=== PATIENT | female | born 1950 | race Caucasian/White ===

== ENCOUNTER 2017-12-11 18:20 | Observation (INO) | payer MEDICARE ==
--- NOTE | 2017-12-11 19:06 | RAD ---
PA CHEST 12/11/17 HISTORY: Shortness of breath. COMPARISON: 11/17/05. Lungs appear clear. No infiltrate identified. Heart and mediastinum unremarkable. IMPRESSION: No acute abnormality identified. POS: [facility]
[2017-12-11 19:36] LABS: #Basophils 0.1 thou/uL (0.0-0.2); #Eosinphils 0.5 thou/uL (0.0-0.7); #Lymphocytes 1.8 thou/uL (1.20-3.40); #Monocytes 0.7 thou/uL (0.11-0.59); #Neutrophils 6.7 thou/uL (1.40-6.50); %Basophils 0.6 % (0.0-1.0); %Eosinophils 5.5 % (0.0-10.0); %Lymphocytes 18.1 % (21.0-51.0); %Monocytes 6.9 % (0.0-10.0); %Neutrophils 68.9 % (42.0-75.0); Hemoglobin 12.8 g/dL (12.0-16.0); Mean Corpuscular Volume 96.9 fl (81.0-99.0); Mean Platelet Volume 7.2 fL (7.4-10.4); Platelet Count 279 thou/uL (130-400); RBC Distribution Width 11.4 % (11.5-14.5); Red Blood Cell (RBC) Count 3.99 mill/uL (4.20-5.40); White Blood Cell (WBC) Count 9.8 thou/uL (4.8-10.8)
[2017-12-11 19:42] LABS: Prothrombin Time 13.2 SEC (12.0-14.7)
[2017-12-11 19:43] LABS: PTT 32.7 SEC (22.9-36.1)
--- NOTE | 2017-12-11 19:53 | RAD ---
RIGHT HIP: 12/11/17 Two views. HISTORY: Fall with injury to right hip. No evidence of fracture. Femoral head contours maintained. IMPRESSION: No acute fracture identified. POS: [facility]
--- NOTE | 2017-12-11 19:57 | RAD ---
RIGHT KNEE: 12/11/17 Four views. HISTORY: Fall with injury to right knee. There are moderate degenerative changes of the right knee. There is loss of medial joint space. Promi nent spurring from all joint compartments. No significant joint effusion. No acute fracture identifie d. IMPRESSION: Moderate degenerative changes of right knee. POS: [facility]
[2017-12-11 19:58] LABS: ALT (SGPT) 25 U/L (8-55); AST (SGOT) 25 U/L (5-34); Alkaline Phosphatase 78 U/L (40-150); Anion Gap 14 mmol/L (10-20); BUN (Urea Nitrogen) 20 mg/dL (9.8-20.1); Bilirubin, Total 0.3 mg/dL (0.2-1.2); CK (CPK) 161 U/L (29-168); Calc. Creatinine Clearance 0 mL/min (70-130); Calcium 9.5 mg/dL (7.8-10.44); Carbon Dioxide 27 mmol/L (23-31); Chloride 100 mmol/L (98-107); Estimated GFR-MDRD 47; Globulin 3.4 g/dL (2.4-3.5); Glucose 122 mg/dL (80-115); Lipase 29 U/L (8-78); Potassium 3.6 mmol/L (3.5-5.1); Protein, Total 7.4 g/dL (6.0-8.3); Sodium 137 mmol/L (136-145)
[2017-12-11 20:02] LABS: CKMB 3.2 ng/mL (0-6.6); Troponin I 0.018 ng/mL (< 0.028)
--- NOTE | 2017-12-11 20:04 | CT ---
CT HEAD WITHOUT CONTRAST: 12/11/17 Multiple axial tomograms obtained through the head without IV enhancement. HISTORY: Falls with injury to head. Ventricles have normal size and position. No evidence of intracranial hemorrhage. No mass or infarct seen. Sinuses and mastoids are well aerated. IMPRESSION: Unremarkable head CT. POS: [facility]
[2017-12-11] MEDS ORDERED: Triamcinolone 0.1% Cream 15 GM TUBE TOP PRN (22:08)
[2017-12-11] MEDS ORDERED: Acetaminophen 325 MG TAB PO PRN (22:39)
[2017-12-11] MEDS ORDERED: Ondansetron ODT 4 MG TAB PO PRN (22:39)
[2017-12-11] MEDS ORDERED: Atorvastatin Calcium 40 MG TAB PO SCH (23:00)
[2017-12-11] MEDS: Sodium Chloride 0.9% 1,000 ML IV SCH (23:00)
[2017-12-11 23:14] LABS: Troponin I 0.023 ng/mL (< 0.028)
--- NOTE | 2017-12-12 01:43 | HP-2 ---
CODE STATUS: FULL. PRIMARY CARE PHYSICIAN: [facility]. ATTENDING: Jean-Pierre Gregory M.D. RESIDENT: Xavi Madison M.D. CHIEF COMPLAINT: Recurrent falls. HISTORY OF PRESENT ILLNESS: This is a 67-year-old female who presents after 4 unwitnessed falls melanie ier today from standing. The patient is not a very good historian during this interview. The patien t does state that she did not lose consciousness. She did not lose continence at that time either. She said that she had 2 falls back to back. The first falls occurred while she was getting out of a car, she was standing still and she fell down to her right side. She then attempted to get up and sh e fell back down. Her sister was able to help her get up, she then drove home and the same set of ev ents occurred at home as well. At that time, then I was decided that she needed to be brought to the ER for evaluation. She denies any weakness, any numbness, any dizziness or any recent illness. She does state that she had not drank much water today and had been dizzy. She denies any vision change s, headache, nausea, vomiting, or diarrhea. She states that she did not have any vision changes or l oss of consciousness during the fall. She has no other complaints at this time. In the ER, she was not given anything. PAST MEDICAL HISTORY: Significant for hypertension and arthritis. PAST SURGICAL HISTORY: Appendectomy, cholecystectomy, and hysterectomy. ALLERGIES: FENTANYL. MEDICATIONS: 1. She takes hydrochlorothiazide 25 mg orally daily. 2. Lisinopril 40 mg daily. 3. Amitriptyline 100 mg at bedtime. FAMILY HISTORY: Noncontributory. SOCIAL HISTORY: No tobacco, alcohol or drug use. REVIEW OF SYSTEMS: A 12-point review of systems was otherwise negative other than listed above as in the HPI. PHYSICAL EXAMINATION: VITAL SIGNS: Blood pressure was 100/69, pulse was 86, respiratory rate of 29, temperature max 98.6, pulse oximetry 100% on room air, and current weight is 94 kilos. GENERAL: Alert and oriented x4. Appropriately interactive. EYES: PERRLA. Conjunctivae within normal limits. ENT: Tympanic membranes are pearly davis without bulging or erythema. Nasal mucosa and oropharynx wi thin normal limits. NECK: Supple without lymphadenopathy, without thyromegaly. CARDIOVASCULAR: Regular rate and rhythm. No murmurs, no gallops. Radial and pedal pulses equal tomeka aterally. RESPIRATORY: Normal effort, no retractions. Lungs are clear to auscultation bilaterally. SKIN: Warm and dry. ABDOMEN: Soft, nontender to palpation. Bowel sounds are present x4. No masses or distention, but s he is an obese woman. EXTREMITIES: No clubbing, cyanosis or edema. MUSCULOSKELETAL: Structure, tone, muscle strength and range of motion within normal limits. NEUROLOGIC: No focal neurologic deficits. Sensation within normal limits. Cranial nerves II-XII gr ossly intact. GCS was 15. A complete neuro exam was unremarkable on this patient. PSYCHIATRIC: Ap propriate. LABORATORY DATA: White blood cell count 9.8, platelet count 279, hemoglobin 12.8, hematocrit 38.7, a nd 68.9% neutrophils. CK was 161, CK-MB was 3.2. Troponin I was 0.018. Sodium 137, potassium 3.6, chloride 100, bicarbonate 27, BUN 20, creatinine 1.14, glucose was 122, calcium 9.5, total protein 7. 4, albumin 4.0, AST 25, ALT 25, alkaline phosphatase 78, total bilirubin 0.3. PT was 13.2, INR was 1 .0, PTT 32.7. Lipase was 29. BNP was 15.9. The patient had a knee x-ray that showed moderate degen erative changes of the right knee. Also had a hip x-ray that showed no acute fracture identified. A lso had a chest x-ray that showed no acute abnormality identified and then also a brain CT that showe d unremarkable head CT. ASSESSMENT AND PLAN: This is a 67-year-old female with: 1. Recurrent falls. We will rule out a transient ischemic attack versus syncope versus a nerve entr apment from her lumbar radiculopathy. We scheduled that for an MRI in the morning and also get a lip id panel and TSH to risk stratify her for her transient ischemic attack. We put her on continuous ca rdiac monitoring. Her ABCD score was 3 to 5 to be a risk factors. We will continue her neuro checks . We are going to hold her blood pressure medications for now as she is more than well controlled. We will also put on fall precautions. Orthostatic vital signs will be pending and we will start her on aspirin and a statin drug tonight. 2. Hypertension. We will hold her blood pressure medications tonight as she is not hypertensive at this time. 3. Lumbar radiculopathy. We will recommend outpatient follow up for this. 4. Scalp dermatitis. Outpatient followup for steroid use. There was some discussion of this could possibly be due to a Parkinson's type presentation as she has had some autonomic dysfunction and scal p dermatitis that would be an abnormal presentation of this disease, but some can be considered as we are working in this patient. 5. She also has an acute kidney injury. We will give her IV fluids and monitor her BMP. DISPOSITION AND LENGTH OF HOSPITAL STAY: Will be stroke in one. Symptomatic medication will be provided. History and physical exam as well as management have been discussed with Dr. Gregory.
[2017-12-12] MEDS ORDERED: hydrOXYzine 25 MG TAB PO PRN (02:17)
[2017-12-12] MEDS ORDERED: diphenhydrAMINE 25 MG CAP PO PRN (03:08)
[2017-12-12 04:09] LABS: Anion Gap 14 mmol/L (10-20); BUN (Urea Nitrogen) 21 mg/dL (9.8-20.1); Calc. Creatinine Clearance 75 mL/min (70-130); Calcium 9.5 mg/dL (7.8-10.44); Carbon Dioxide 27 mmol/L (23-31); Cardiac Risk 4.4 (Less than 4.5); Chloride 103 mmol/L (98-107); Cholesterol 166 mg/dl (< 200 Desired); Estimated GFR-MDRD 50; Glucose 106 mg/dL (80-115); HDL Cholesterol 38 mg/dL (>60 Neg Risk); LDL Cholesterol, Calculated 105 mg/dL; Potassium 3.6 mmol/L (3.5-5.1); Sodium 140 mmol/L (136-145); Triglycerides 113 mg/dL (Less than 150)
[2017-12-12 06:47] VITALS: BMI 37.4
[2017-12-12] MEDS: Sodium Chloride 0.9% 1,000 ML IV SCH ×2 (07:47→20:38)
[2017-12-12] MEDS ORDERED: Lorazepam 2 MG/ML VIAL SLOW IVP PRN (08:16)
--- NOTE | 2017-12-12 08:19 | PDOC.FM ---
- Subjective Subjective: Patient c/o headache and scalp irritation this morning. She is otherwise normal with stable vital signs. She reports no prior episodes of syncope before yesterday. - Objective MAR Reviewed: Yes Vital Signs & Weight: Vital Signs (12 hours) Temp Pulse Resp BP Pulse Ox 12/12/17 05:18 97.9 F 83 16 94/52 L 92 L 12/11/17 23:00 97.9 F 92 16 12/11/17 22:39 97.9 F 92 16 130/60 96 Weight Weight 95.799 kg I&O: 12/11/17 12/12/17 12/13/17 06:59 06:59 06:59 Intake Total 875 Balance 875 Result Diagrams: 12/11/17 19:26 12/12/17 01:46 <José Miguel Loving - Last Filed: 12/12/17 08:18> - Objective Vital Signs & Weight: Vital Signs (12 hours) Temp Pulse Resp BP BP BP BP 12/12/17 12:00 97.9 F 75 16 93/65 12/12/17 09:00 102/55 L 85/46 L 111/55 L 12/12/17 08:00 97.8 F 80 16 110/63 12/12/17 05:18 97.9 F 83 16 94/52 L Pulse Ox 12/12/17 12:00 93 L 12/12/17 09:00 12/12/17 08:00 93 L 12/12/17 05:18 92 L Weight Weight 95.799 kg I&O: 12/11/17 12/12/17 12/13/17 06:59 06:59 06:59 Intake Total 875 240 Balance 875 240 Result Diagrams: 12/11/17 19:26 12/12/17 01:46 <German Duran - Last Filed: 12/12/17 12:22> Phys Exam - Physical Examination Constitutional: NAD HEENT: moist MMs Respiratory: no wheezing, no rales Cardiovascular: RRR, no significant murmur Gastrointestinal: soft, non-tender Neurological: moves all 4 limbs Psychiatric: normal affect, A&O x 3 <José Miguel Loving - Last Filed: 12/12/17 08:18> Dx/Plan (1) Syncope Code(s): R55 - SYNCOPE AND COLLAPSE Status: Suspected QualifierTitle: Encounter type: initial encounter Plan: Unknown etiology at this time, will r/o TIA with MRI today. Patient endorses decreased PO intake yesterday. Denies loss of consiousness, head trauma, or prodrome before falls. CT head done on admission negative. (2) Hypertension Code(s): I10 - ESSENTIAL (PRIMARY) HYPERTENSION Status: Chronic Plan: Not currently on medication (3) Seborrheic dermatitis of scalp Code(s): L21.9 - SEBORRHEIC DERMATITIS, UNSPECIFIED Status: Chronic Plan: Being treated in the OP setting (4) Lumbar radiculopathy, chronic Code(s): M54.16 - RADICULOPATHY, LUMBAR REGION Status: Chronic Plan: Continue Amitriptyline (5) Hyperlipidemia Code(s): E78.5 - HYPERLIPIDEMIA, UNSPECIFIED Status: Acute Plan: FLP with 11% ASCVD risk Continue statin - Plan Plan: Plan: -MRI brain today -orthostatic vital signs <José Miguel Loving - Last Filed: 12/12/17 08:18> Attending Addendum - Attending Addendum I personally evaluated the patient and discussed the management with Dr. Loving. I agree with and repeated the History, Examination, Assessment and Plan documented above with any addition or exceptions noted below. Pt with symptoms during orthostatics. Otherwise no cp/sob/n/v/f/c/weakness/ palps. She had several falls. No syncope at all. Was fine before, during, and after the events besides the fall. Will complete workup with MRI/TTE. ECG with q waves in 2 inferior leads, poor RWP, borderline voltage. No ST/T changes. Low suspicion for AD/ACS/PE as she was asymptomatic besides the fall. <German Duran - Last Filed: 12/12/17 12:22>
[2017-12-12] MEDS: Aspirin 81 mg Enteric Coated Tablet PO SCH (09:05)
[2017-12-12] MEDS: Selenium Sulfide 1% Shampoo 210 ML BOT TOP SCH ×2 (09:59→10:58)
[2017-12-12] MEDS ORDERED: Lorazepam 2 MG/ML VIAL SLOW IVP SCH (14:15)
--- NOTE | 2017-12-12 15:57 | MRI ---
EXAM: BRAIN MRI WITHOUT CONTRAST: History Fall. Injury to the head. COMPARISON: None. TECHNIQUE: MRI is performed without intravenous Gadolinium administration. Multisequential, multiplanar imaging is performed. FINDINGS: No hemorrhage on the axial gradient echo sequence. Calvarium has a normal marrow signal intensity. Midline brain parenchymal structures are unremarkabl e. Central arterial flow voids are maintained. Absence of restricted diffusion. Brain volume is age appropriate. Cortical davis-white matter differentiation is preserved. No hydroc ephalus. No parenchymal mass, mass effect, or midline shift. IMPRESSION: 1. No intracranial posttraumatic sequelae. 2. No acute intracranial process. POS: [facility]
[2017-12-12] MEDS ORDERED: Atorvastatin Calcium 40 MG TAB PO SCH (21:00)
[2017-12-12] MEDS ORDERED: Amitriptyline HCl 100 MG TAB PO SCH (21:00)
[2017-12-12] MEDS ORDERED: Enoxaparin Sodium 40 MG/0.4 ML SYRINGE SC SCH (21:00)
[2017-12-13] MEDS: Sodium Chloride 0.9% 1,000 ML IV SCH (04:14)
[2017-12-13] MEDS: Selenium Sulfide 1% Shampoo 210 ML BOT TOP SCH (08:36)
[2017-12-13] MEDS: Aspirin 81 mg Enteric Coated Tablet PO SCH (08:36)
--- NOTE | 2017-12-13 08:51 | PDOC.FM ---
- Subjective Subjective: Patient with no complaints this morning. No acute events overnight. Afebrile, VSS. - Objective MAR Reviewed: Yes Vital Signs & Weight: Vital Signs (12 hours) Temp Pulse Resp BP BP Pulse Ox 12/13/17 04:07 98.5 F 82 16 110/54 L 95 12/13/17 00:00 97.9 F 82 16 120/58 L 92 L Weight Weight 95.799 kg I&O: 12/12/17 12/13/17 12/14/17 06:59 06:59 06:59 Intake Total 875 2435.50 Balance 875 2435.50 Result Diagrams: 12/11/17 19:26 12/12/17 01:46 <José Miguel Loving - Last Filed: 12/13/17 08:48> - Objective Vital Signs & Weight: Vital Signs (12 hours) Temp Pulse Resp BP BP BP BP 12/13/17 09:00 98.1 F 16 110/67 103/71 107/66 12/13/17 08:00 98.1 F 93 16 12/13/17 04:07 98.5 F 82 16 110/54 L 12/13/17 00:00 97.9 F 82 16 120/58 L Pulse Ox 12/13/17 09:00 12/13/17 08:00 12/13/17 04:07 95 12/13/17 00:00 92 L Weight Weight 95.799 kg I&O: 12/12/17 12/13/17 12/14/17 06:59 06:59 06:59 Intake Total 875 2435.50 960 Balance 875 2435.50 960 Result Diagrams: 12/11/17 19:26 12/12/17 01:46 <German Duran - Last Filed: 12/13/17 11:55> Phys Exam - Physical Examination Constitutional: NAD HEENT: moist MMs Respiratory: no wheezing, no rales Cardiovascular: RRR, no significant murmur Gastrointestinal: soft, non-tender Musculoskeletal: no edema Psychiatric: normal affect, A&O x 3 <José Miguel Loving - Last Filed: 12/13/17 08:48> Dx/Plan (1) Orthostatic hypotension Code(s): I95.1 - ORTHOSTATIC HYPOTENSION Status: Acute Plan: TIA/CVA ruled out with normal MRI and no FND CT head done on admission negative Will rule out cardiogenic etiology with TTE (2) Hypertension Code(s): I10 - ESSENTIAL (PRIMARY) HYPERTENSION Status: Chronic Plan: Not currently on medication well controlled since admission (3) Seborrheic dermatitis of scalp Code(s): L21.9 - SEBORRHEIC DERMATITIS, UNSPECIFIED Status: Chronic Plan: Being treated in the OP setting (4) Lumbar radiculopathy, chronic Code(s): M54.16 - RADICULOPATHY, LUMBAR REGION Status: Chronic Plan: Continue Amitriptyline (5) Hyperlipidemia Code(s): E78.5 - HYPERLIPIDEMIA, UNSPECIFIED Status: Acute Plan: FLP with 11% ASCVD risk Continue statin - Plan Plan: Plan: -no CP, SOB, light headedness, vertigo -TTE today and likely discharge <José Miguel Loving - Last Filed: 12/13/17 08:48> Attending Addendum - Attending Addendum I personally evaluated the patient and discussed the management with Dr. Loving. I agree with and repeated the History, Examination, Assessment and Plan documented above with any addition or exceptions noted below. Await TTE. Discharge with follow up with Dr. Painting. <German Duran - Last Filed: 12/13/17 11:55>
[2017-12-13 12:17] VITALS: BP 102/60; TEMP 98
== END 2017-12-13 14:45 | disposition home or self-care (01) ==
LOC: ERS 18:20 → 2SE 21:00
PROVIDERS: ADMIT Family Medicine; ATTEND Family Medicine
DX: I95.1 Orthostatic hypotension (principal); R29.6 Repeated falls; I10 Essential (primary) hypertension; L21.9 Seborrheic dermatitis, unspecified; N17.9 Acute kidney failure, unspecified; E78.5 Hyperlipidemia, unspecified; M54.16 Radiculopathy, lumbar region; M19.90 Unspecified osteoarthritis, unspecified site; Z88.8 Allergy status to other drugs, medicaments and biological substances; Z90.49 Acquired absence of other specified parts of digestive tract; Z90.710 Acquired absence of both cervix and uterus
CPT/HCPCS: 70450; 70551; 71045; 73502; 73564; 80048; 80061; 82550; 82553; 83690; 83880; 84484 ×3; 85610; 85730; 93005; 93306; 96361 ×2; 96374; 96376; 99285; G0378; 36415; 80053; 84443; 85025; J1650; J2060